=== PATIENT | female | born 1950 | race Caucasian/White ===

== ENCOUNTER 2016-06-17 07:10 | Day surgery (SDC) | payer OTHER ==
[~2016-06-17] VITALS: Ht 172.7 cm; Wt 92.0 kg
[~2016-06-17 07:10] MED LIST: ASPI81TA40 PO; ATOR10TA66 PO; CETI10CA PO; CYAN-2 SL; EPIN0.3P2 IJ; HYG25 PO; OMEP20CA11 PO; POTA10TA12 PO; SERT100T PO; Sodium Chloride LOK Flush 10 mL Syringe IV PRN; fentaNYL-PF 50 mCg/mL 2 mL Inj IVPUSH PRN
[2016-06-17 07:38] VITALS: BP 138/72; PULSE 68; RESP 16; O2SAT 94
[2016-06-17] MEDS ORDERED: CHOL200047 PO (07:41)
[2016-06-17] MEDS: 0.9% Sodium Chloride 1,000 ML IV SCH ×3 (07:49→08:19)
[2016-06-17 08:26] VITALS: BP 111/58; PULSE 49; RESP 14; O2SAT 93
[2016-06-17 08:34] VITALS: BP 103/63; PULSE 59; RESP 14; O2SAT 93
[2016-06-17 08:39] VITALS: BP 106/61; PULSE 58; RESP 14; O2SAT 94
--- NOTE | 2016-06-17 12:01 | ENDO ---
[address] [address] ENDOSCOPY PROCEDURE PATIENT: INES BARNARD : 1950 MR#: [id number] ADMIT: 06/17/2016 JOB ID: [id number] DATE: 06/17/2016 PROCEDURE: Colonoscopy. INDICATIONS: Screening. The patient's ASA classification is 1. Mallampati score is 1. MEDICATIONS: 1. Versed 4 mg. 2. Fentanyl 100 mcg. INSTRUMENT USED: PCF H 190 DL. PREPARATION QUALITY: Was fair. PROCEDURE DETAILS: After informed consent was obtained, the patient was brought into the GI suite, where she was placed on oxygen via nasal cannula and monitored with continuous pulse oximeter, telemetry, and blood pressure monitoring. A time-out was performed. Then, she was placed in the left lateral decubitus position and medications were administered for sedation. A digital rectal examination was performed and was unremarkable. The colonoscope was then inserted into the rectum and advanced under direct visualization to the cecum, which was identified by the presence of the ileocecal valve and appendiceal orifice. Once the cecum was reached, colonoscope was withdrawn back into the rectum as the mucosa and lumen were examined. In the rectum, retroflexion was performed. Following retroflexion, remaining air in the rectum was suctioned, and the procedure was completed. FINDINGS: Normal examination from rectum to cecum. IMPRESSION: Normal colonoscopy. RECOMMENDATIONS: Repeat colonoscopy in 10 years, sooner if symptoms should dictate. COMPLICATIONS: None. ESTIMATED BLOOD LOSS: 0.
== END 2016-06-17 23:59 | disposition home or self-care (01) ==
LOC: END 07:10
PROVIDERS: ATTEND Internal Medicine Gastroenterology
DX: Z12.11 Encounter for screening for malignant neoplasm of colon (principal); Z86.010 Personal history of colon polyps; Z83.71 Family history of colonic polyps; E78.5 Hyperlipidemia, unspecified; F41.9 Anxiety disorder, unspecified; F32.9 Major depressive disorder, single episode, unspecified; I10 Essential (primary) hypertension; Z79.82 Long term (current) use of aspirin
CPT/HCPCS: 99153; G0105; G0500; J2250; J7030